=== PATIENT | female | born 1965 | race Caucasian/White ===

== ENCOUNTER 2019-02-26 08:31 | Emergency (ER) | payer OTHER ==
[~2019-02-26] VITALS: Ht 157.5 cm; Wt 90.7 kg
[2019-02-26] MEDS ORDERED: LOSARTAN POTASS50 MG PO (08:44)
[2019-02-26] MEDS ORDERED: HYDROCHLOROTH12.5 M1 (10:10)
== END 2019-02-26 13:30 | disposition home or self-care (01) ==
LOC: ER 08:31
DX: N39.0 Urinary tract infection, site not specified (principal); M54.5 Low back pain

== ENCOUNTER 2019-03-04 01:36 | Emergency (ER) | payer OTHER ==
[~2019-03-04] VITALS: Ht 157.5 cm; Wt 88.5 kg
[~2019-03-04 01:36] MED LIST: HYDROCHLOROTH12.5 M1; LOSARTAN POTASS50 MG PO
== END 2019-03-04 11:48 | disposition home or self-care (01) ==
LOC: ER 01:36
DX: K57.90 Diverticulosis of intestine, part unspecified, without perforation or abscess without bleeding (principal); N39.0 Urinary tract infection, site not specified; K59.09 Other constipation

== ENCOUNTER 2021-01-13 11:33 | Emergency (ER) | payer OTHER ==
[~2021-01-13] VITALS: Ht 157.5 cm; Wt 90.7 kg
[2021-01-13] MEDS ORDERED: ADULT LOW DOSE81 M1 PO (11:45)
[2021-01-13] MEDS ORDERED: BACTRIM DS TAB1 EACH PO (16:25)
[2021-01-13] MEDS ORDERED: DICLOFENAC POTA50 MG PO (16:25)
== END 2021-01-13 16:34 ==
LOC: ER 11:33
DX: M54.6 Pain in thoracic spine (principal); N39.0 Urinary tract infection, site not specified

== ENCOUNTER 2022-05-04 16:13 | Emergency (ER) | payer OTHER ==
[~2022-05-04] VITALS: Ht 149.9 cm; Wt 97.5 kg
[~2022-05-04 16:13] MED LIST changes: +ADULT LOW DOSE81 M1 PO; +BACTRIM DS TAB1 EACH PO; +DICLOFENAC POTA50 MG PO
== END 2022-05-04 18:30 | disposition home or self-care (01) ==
LOC: ER 16:13
DX: M62.830 Muscle spasm of back (principal)